=== PATIENT | male | born 1945 | race Caucasian/White ===

== ENCOUNTER 2019-11-08 12:07 | Outpatient (CLI) | payer MEDICARE | END 2019-11-08 12:08 | disposition home or self-care (01) | LOC: COV 12:07 | PROVIDERS: ATTEND Family Medicine | DX: Z01.812 Encounter for preprocedural laboratory examination (principal); Z20.828 Contact with and (suspected) exposure to other viral communicable diseases ==

== ENCOUNTER 2020-03-12 12:17 | Outpatient (CLI) | payer MEDICARE | END 2020-03-12 12:18 | disposition home or self-care (01) | LOC: COV 12:17 | PROVIDERS: ATTEND Family Medicine | DX: Z20.828 Contact with and (suspected) exposure to other viral communicable diseases (principal) ==

== ENCOUNTER 2020-07-11 08:00 | Outpatient (CLI) | payer MEDICARE | END 2020-07-11 23:59 | disposition home or self-care (01) | LOC: LAB.S 08:00 | PROVIDERS: ATTEND Physician Assistant | DX: L03.019 Cellulitis of unspecified finger (principal) | CPT/HCPCS: 87070; 87181; 87205 ==

== ENCOUNTER 2023-07-23 21:51 | Outpatient (CLI) | payer MEDICARE | END 2023-07-23 23:59 | disposition critical access hospital (66) | LOC: EMS 21:51 | DX: S01.112A Laceration without foreign body of left eyelid and periocular area, initial encounter (principal); W18.39XA Other fall on same level, initial encounter; Y92.009 Unspecified place in unspecified non-institutional (private) residence as the place of occurrence of the external cause | CPT/HCPCS: A0425; A0429 ==

== ENCOUNTER 2023-07-23 22:15 | Emergency (ER) | payer MEDICARE ==
--- NOTE | 2023-07-23 22:27 | ED Physician Documentation ---
PD HPI Fall - Stated complaint Stated Complaint: GLF, HIT HEAD - History obtained from History obtained from: Patient - Additional information Additional information: HPI from patient. 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 He was getting up from a chair which slid backwards as he stood, causing him to lose his balance and fall, s triking his head on the floor as a result. Denies LOC. He sustained left supraorbital laceration. SWAIN is mostly confined to the area of injury (left forehead). Denies neck pain. Does not take blood thinners; he was recently prescribed DOAC but has not started taking it yet. 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, No motor deficit, No sensory deficit, Normal speech Eye Opening: Spontaneous Motor: Obeys Commands Verbal: Oriented GCS Score: 15 PD ED PE EXPANDED - HEENT HEENT Visual: 1 - laceration ("Y"-shaped laceration, total 3.5 cm length) Results - Vitals Vitals: Oxygen O2 Source Room air - Rads (name of study) CTH Relevant Findings:: Prelim report reviewed, See rad report Procedures - Laceration (location) Face Length in cm: 3.5 Wound type: Stellate ("Y"-shaped), Into subcut fat, Clean Neurovascular status: Sensory intact, Motor intact, Vascular intact Anesthesia: Lidocaine 2% with epi Wound preparation: Chlorhexadine, Irrigated copiously NS, Wound explored Skin layer closure: Nylon, Interrupted, Running, Size #-0 - enter number (5-0) Other: Patient tolerated well, No complications, Neurovascular intact, Dressing applied, Tetanus UTD PD Medical Decision Making - ED course Complexity details: considered differential, d/w patient ED course: Mechanical fall with head injury, laceration repaired as above. CTH without concerning findings; specifically, no evidence of fracture, ICH. Return precautions reviewed, advised to follow up with PCP in 7-10 days for suture removal Departure - Departure Disposition: 01 Home, Self Care Clinical Impression: Laceration Fall Qualifiers: Encounter type: initial encounter Qualified Code(s): W19.XXXA - Unspecified fall, initial encounter Condition: Good Instructions: ED Laceration Facial Sutr Tape Comments: A total of 12 stitches were placed in the laceration above your left eye; this is with a combination of running stitch as well as individual stitches. Follow-up with your primary care provider in 7 to 10 days for removal of the stitches. I recommend that you wait 48 hours before starting your anticoagulant medic ation. Furthermore, I recommend that you contact the prescribing physician tomorrow (Tuesday) to get their input regarding recommendations as to when to start taking the anticoagulant. Discharge Date/Time: 07/24/23 02:49
[2023-07-23 22:33] VITALS: O2SAT 98
[2023-07-23] MEDS: LIDOCAINE 2%-EPI 1:100000 20 ML MDV SUBQ STA (22:59)
--- NOTE | 2023-07-24 02:01 | CT Report ---
PROCEDURE: Head WO INDICATIONS: fall, head injury TECHNIQUE: Noncontrast 4.5 mm thick angled axial sections acquired from the foramen magnum to the vertex. For r adiation dose reduction, the following was used: automated exposure control, adjustment of mA and/or kV according to patient size. COMPARISON: None. FINDINGS: Image quality: Excellent. CSF spaces: Basal cisterns are patent. No extra-axial fluid collections. Ventricles are normal in size and shape. Brain: No midline shift. No intracranial masses or hemorrhage. Mariee-white matter interface is norm al. Skull and face: Calvarium and visualized facial bones are intact, without suspicious lesions. Sinuses: Visualized sinuses and mastoids are clear. IMPRESSION: No acute intracranial pathology. No trauma found. Reviewed by: Janak Alfred MD on 07/24/2023 2:00 AM PDT Approved by: Janak Alfred MD on 07/24/2023 2:00 AM PDT Station ID: [id number]
[2023-07-24 02:57] VITALS: BP 120/75
== END 2023-07-24 02:49 | disposition home or self-care (01) ==
LOC: EDUNIT# → ED 22:15
DX: S01.81XA Laceration without foreign body of other part of head, initial encounter (principal); W07.XXXA Fall from chair, initial encounter; Y92.009 Unspecified place in unspecified non-institutional (private) residence as the place of occurrence of the external cause; I48.91 Unspecified atrial fibrillation
CPT/HCPCS: 12013; 99283; 99284

== ENCOUNTER 2023-12-01 12:28 | Outpatient (CLI) | payer MEDICARE | END 2023-12-01 12:29 | disposition home or self-care (01) | LOC: DI 12:28 | PROVIDERS: ATTEND Internal Medicine | DX: I48.91 Unspecified atrial fibrillation (principal); I51.7 Cardiomegaly | CPT/HCPCS: 93307 ==